=== PATIENT | male | born 1945 | race African-American/Black ===

== ENCOUNTER 2017-07-24 09:51 | Day surgery (SDC) | payer OTHER ==
[~2017-07-24 09:51] MED LIST: VERSED ONE
[2017-07-24] MEDS ORDERED: TETRACAINE 0.5% OPHTH 1 DOSE AFFEYE ONE ×3 (10:00→13:31)
[2017-07-24] MEDS ORDERED: VIGAMOX 0.5% OPHTH 1 DOSE AFFEYE ONE ×5 (10:05→13:47)
[2017-07-24] MEDS ORDERED: NS 500 ML IV 500 ML IV ONE (10:09)
[2017-07-24] MEDS ORDERED: PROLENSA OPHTH 1 DOSE AFFEYE ONE (10:16)
[2017-07-24] MEDS ORDERED: ALPHAGAN-P OPHTH 1 DOSE AFFEYE ONE (10:17)
[2017-07-24] MEDS ORDERED: MYDRIACIL OPHTH 1 DOSE AFFEYE ONE ×3 (10:18→10:20)
[2017-07-24] MEDS ORDERED: AK-DILATE 2.5% OPHTH 1 DOSE OP ONE ×3 (10:18→10:20)
[2017-07-24] MEDS ORDERED: CYCLOGYL 1% OPHTH 1 DOSE OP ONE ×3 (10:18→10:20)
[2017-07-24] MEDS ORDERED: BETADINE OPHTH SOLN 5% EACHEYE ONE (13:22)
[2017-07-24] MEDS ORDERED: DUOVISC IO ONE (13:31)
[2017-07-24] MEDS ORDERED: XYLOCAINE-MPF 1% IJ ONE (13:31)
[2017-07-24] MEDS ORDERED: BSS OPHTH (PLAIN) 500 ML with VANCOMYCIN HCL 500 MG VIAL 25 MG, ADRENALINE CHL INJ 1 MG IR ONE ×3 (13:31)
[2017-07-24] MEDS ORDERED: ADRENALINE CHL INJ IJ ONE (13:31)
[2017-07-24 16:19] VITALS: BP 144/74
== END 2017-07-24 14:10 | disposition home or self-care (01) ==
LOC: SURG1 09:51
PROVIDERS: ATTEND Ophthalmology
PROC: 08RK3JZ Replacement of Left Lens with Synthetic Substitute, Percutaneous Approach (ICD-10-PCS; principal; 2017-07-24 18:00)
PROC: 08DK3ZZ Extraction of Left Lens, Percutaneous Approach (ICD-10-PCS; principal; 2017-07-24 18:00)
DX: H25.12 Age-related nuclear cataract, left eye (principal); H25.012 Cortical age-related cataract, left eye; H25.042 Posterior subcapsular polar age-related cataract, left eye
CPT/HCPCS: 99100; A4217; J0170; J2250; J3370

== ENCOUNTER 2017-08-07 07:47 | Day surgery (SDC) | payer OTHER ==
[2017-08-07] MEDS ORDERED: TETRACAINE 0.5% OPHTH 1 DOSE AFFEYE ONE ×2 (08:00→10:37)
[2017-08-07] MEDS ORDERED: VIGAMOX 0.5% OPHTH 1 DOSE AFFEYE ONE ×5 (08:05→11:05)
[2017-08-07] MEDS ORDERED: NS 500 ML IV 500 ML IV ONE (08:11)
[2017-08-07] MEDS ORDERED: PROLENSA OPHTH 1 DOSE AFFEYE ONE (08:16)
[2017-08-07] MEDS ORDERED: ALPHAGAN-P OPHTH 1 DOSE AFFEYE ONE (08:17)
[2017-08-07] MEDS ORDERED: MYDRIACIL OPHTH 1 DOSE AFFEYE ONE ×3 (08:19→08:21)
[2017-08-07] MEDS ORDERED: AK-DILATE 2.5% OPHTH 1 DOSE OP ONE ×3 (08:19→08:21)
[2017-08-07] MEDS ORDERED: CYCLOGYL 1% OPHTH 1 DOSE OP ONE ×3 (08:19→08:21)
[2017-08-07] MEDS ORDERED: BETADINE OPHTH SOLN 5% EACHEYE ONE (10:37)
[2017-08-07] MEDS ORDERED: XYLOCAINE-MPF 1% IJ ONE (10:50)
[2017-08-07] MEDS ORDERED: DUOVISC IO ONE (10:50)
[2017-08-07] MEDS ORDERED: BSS OPHTH (PLAIN) 500 ML with VANCOMYCIN HCL 500 MG VIAL 25 MG, ADRENALINE CHL INJ 1 MG IR ONE ×3 (10:50)
[2017-08-07] MEDS ORDERED: ADRENALINE CHL INJ IJ ONE (10:50)
[2017-08-07] MEDS ORDERED: VERSED ONE (10:54)
[2017-08-07 11:24] VITALS: BP 144/82
== END 2017-08-07 11:30 | disposition home or self-care (01) ==
LOC: SURG1 07:47
PROVIDERS: ATTEND Ophthalmology
PROC: 08RJ3JZ Replacement of Right Lens with Synthetic Substitute, Percutaneous Approach (ICD-10-PCS; principal; 2017-08-07 10:30)
PROC: 08DJ3ZZ Extraction of Right Lens, Percutaneous Approach (ICD-10-PCS; principal; 2017-08-07 10:30)
DX: H25.11 Age-related nuclear cataract, right eye (principal); H25.011 Cortical age-related cataract, right eye
CPT/HCPCS: 99100; A4217; J0170; J2250; J3370